=== PATIENT | male | born 1955 | race Caucasian/White ===

== ENCOUNTER → 2018-04-21 | Outpatient (CLI) | payer OTHER, BC | END | disposition home or self-care (01) | LOC: ROC 08:16 | PROVIDERS: ATTEND Radiology Radiation Oncology | DX: C61 Malignant neoplasm of prostate (principal) | CPT/HCPCS: 99214; G0463 ==

== ENCOUNTER 2019-08-16 11:55 | Emergency (ER) | payer OTHER, BC ==
[~2019-08-16] VITALS: Ht 198.1 cm; Wt 125.0 kg
--- NOTE | 2019-08-16 12:16 | NUR ---
Pt assessed. Report he dropped a can on his left foot 3 days ago and since has had erythema and edema on left foot. Pt had blood work done yesterday for r/o DVT, and reports "it was high so I was sent here for U/S". Pt denies fevers. Pt able to ambulate with increased pain. Medical hx arthritis and BPH. No questions or concerns. Will cont to monitor
[2019-08-16] MEDS ORDERED: MELO15TA24 PO (12:25)
[2019-08-16] MEDS ORDERED: TAMS-11 PO (12:26)
[2019-08-16] MEDS ORDERED: THYR30TA PO (12:26)
[2019-08-16] MEDS ORDERED: AMPICILLIN/SULBACTAM 3 GM in SODIUM CHLORIDE 0.9% 100 ML IV ONE (12:30)
[2019-08-16 12:47] LABS: BASOPHILS # (AUTO) 0.04 x10^3/uL (0-0.1); BASOPHILS % (AUTO) 1 % (0-1); EOSINOPHILS # (AUTO) 0.26 x10^3/uL (0-0.4); EOSINOPHILS % (AUTO) 3 % (1-7); LYMPHOCYTES # (AUTO) 2.93 x10^3/uL (1-3.4); LYMPHOCYTES % (AUTO) 33 % (22-44); MD NO; MEAN CORPUSCULAR HEMOGLOBIN 31.4 pg (27.5-34.5); MEAN CORPUSCULAR HGB CONC 33.7 g/dL (33.2-36.2); MEAN CORPUSCULAR VOLUME 93.2 fL (81-97); MEAN PLATELET VOLUME 7.6 fL (7.4-10.4); MONOCYTES # (AUTO) 0.79 x10^3/uL (0.2-0.8); MONOCYTES % (AUTO) 9 % (2-9); NEUTROPHILS # (AUTO) 4.87 x10^3/uL (1.8-6.8); NEUTROPHILS % (AUTO) 55 % (42-75); PLATELET COUNT 246 x10^3/uL (130-400); RED BLOOD COUNT 4.43 x10^6/uL (4.38-5.82); RED CELL DISTRIBUTION WIDTH 13.6 % (9.4-14.8)
[2019-08-16 12:58] LABS: ANION GAP 5 mmol/L (5-15); CALCIUM 9.1 mg/dL (8.5-10.1); CHLORIDE 111 mmol/L (98-107); CREATININE 1.09 mg/dL (0.7-1.3)
[2019-08-16 14:03] VITALS: BP 105/68
== END 2019-08-16 14:21 | disposition home or self-care (01) ==
LOC: ED 14:00
DX: L03.116 Cellulitis of left lower limb (principal)
CPT/HCPCS: 36415; 80048; 85025; 93971; 96365; 99284; J0295

== ENCOUNTER 2020-08-25 12:55 | Emergency (ER) | payer OTHER, BC ==
[~2020-08-25] VITALS: Ht 198.1 cm; Wt 124.6 kg
[~2020-08-25 12:55] MED LIST: MELO15TA24 PO; TAMS-11 PO; THYR30TA PO
--- NOTE | 2020-08-25 14:12 | NUR ---
TASK RN: PT AMBULATED STEADILY TO ROOM FROM LOBBY WITH RN. NAD NOTED.
--- NOTE | 2020-08-25 14:19 | NUR ---
TASK RN: PT CO INTERMITTENT R HAND NUMBNESS/TINGLING X TEN DAYS, "ITS LIKE PINS AND NEEDLES" WORSENS WITH ELBOW FLEXION. "ITS BEEN BAD WHEN I AM ON MY COMPUTER". NO EVIDENCE OF TRAUMA. EQUAL BILATERAL UPPER EXTREMITY STRENGTH; <3S CAP REFILL. BP/SPO2 MONITORING IN PLACE. VSS. PT REPORTS CURRENT RADIATION TREATMENT FOR PROSTATE CANCER. REPORT TO BREAK ANTONINA HOLT.
--- NOTE | 2020-08-25 14:26 | NUR ---
BREAK RN: PT VSS, NAD NOTED, PENDING PROVIDER EVAL. CALL LIGHT W/I REACH
--- NOTE | 2020-08-25 15:23 | NUR ---
JULES Rubalcava NP at bedside for eval.
[2020-08-25 15:40] VITALS: BP 121/84
== END 2020-08-25 15:46 | disposition home or self-care (01) ==
LOC: ED 14:55
DX: R20.2 Paresthesia of skin (principal); M25.532 Pain in left wrist; M25.531 Pain in right wrist
CPT/HCPCS: 99283